=== PATIENT | female | born 1980 | race Caucasian/White ===

== ENCOUNTER → 2018-01-18 | Outpatient (CLI) | payer BC ==
--- NOTE | 2018-01-18 12:22 | PCVCIMAG ---
EXAM: VENOUS DUPLEX LEFT LOWER EXTREMITY INDICATION: Leg pain and swelling. FINDINGS: Left leg: Since December 07, 2017 study occlusive thrombus in the common femoral vein has resolved. Today there is moderate nonocclusive thrombus in the upper main femoral vein which is decreased in amount since prior study. There is unchanged occlusive thrombus in the mid and distal main femoral vein and throughout the popliteal vein and extending into the posterior tibial veins. IMPRESSION: Since prior study left common femoral vein thrombosis has resolved. There is unchanged occlusive deep venous thrombosis in the mid and lower main femoral and throughout the left popliteal vein. LOC:[id number]
--- NOTE | 2018-01-18 14:51 | PCVCIMAG ---
APPROVED REPORT Study performed: 01/18/2018 08:32:18 EXAM: Comprehensive 2D, Doppler, and color-flow Echocardiogram Patient Location: Echo lab Status: routine BSA: 2.34 HR: 68 bpmBP: 130/84 mmHg Rhythm: NSR Other Information Study Quality: Adequate Risk Factors: Cardiac Risk Factors: HTN Indications Chest Pain s/p pulmonary embolism, assess right sided volume and PAP 2D Dimensions LVEF(%): 56.55 (>50%) IVSd: 8.70 (7-11mm) LVDd: 55.22 mm PWd: 8.79 (7-11mm) LVDs: 38.68 (25-40mm) Left Atrium: 40.14 (27-40mm) Aortic Root: 34.63 mm LV Single Plane 4CH: 57.96 % LV Single Plane 2CH: 55.04 %[place] LVEF: 56.50 % Biplane EF: 57.0 % Tricuspid Valve TR Peak Misael.: 2.49 m/s TR Peak Gr.: 24.86 mmHg Left Ventricle Left ventricle is borderline dilated. There is normal LV segmental wall motion. There is normal left ventricular wall thickness. Left ventricular systolic function is within lower limits of normal. LVEF is 50-55%. This study is not technically sufficient to allow evaluation of the LV diastolic function. Right Ventricle The right ventricle is normal size. The right ventricular systolic function is normal. Atria The left atrium size is normal. The right atrium size is normal. Aortic Valve The aortic valve is normal in structure. No aortic regurgitation is present. There is no aortic valvular stenosis. Mitral Valve The mitral valve is normal in structure. Mild mitral regurgitation. No evidence of mitral valve stenosis. Tricuspid Valve The tricuspid valve is normal in structure. Mild tricuspid regurgitation with PAP of 32 mmHg. Pulmonic Valve The pulmonary valve is normal in structure. There is no pulmonic valvular regurgitation. Great Vessels The aortic root is normal in size. IVC is normal in size and collapses with >50% inspiration Pericardium There is no pericardial effusion. There is no pleural effusion. <Conclusion> Left ventricle is borderline dilated. Left ventricular systolic function is within lower limits of normal. LVEF is 50-55%. This study is not technically sufficient to allow evaluation of the LV diastolic function. The right ventricle is normal size. The left atrium size is normal. The aortic valve is normal in structure. Mild mitral regurgitation. Mild tricuspid regurgitation with PAP of 32 mmHg. The aortic root is normal in size. There is no pericardial effusion.
== END | disposition home or self-care (01) ==
LOC: PCVCIMAG 12:00
PROVIDERS: ATTEND Internal Medicine Cardiovascular Disease
DX: I82.402 Acute embolism and thrombosis of unspecified deep veins of left lower extremity (principal); M79.89 Other specified soft tissue disorders
CPT/HCPCS: 93308; 93971

== ENCOUNTER → 2018-01-28 | Outpatient (CLI) | payer BC ==
[~2018-01-28] MED LIST: DIAZEPAM 10 MG TABLET. ONE; HEPARIN 1,000 UNIT/ML VIAL for PCVC ONE; IOHEXOL 300 MG/ML 100ML VIAL. ONE; IV NORMAL SALINE 500ML BAG 1,000 ML ONE; IV NORMAL SALINE 500ML BAG 500 ML ONE; LIDOCAINE 1% Multi-Dose 50 ML VIAL. ONE; MIDAZOLAM HCL/PF 2 MG/2 ML VIAL. ONE; fentaNYL PF VIAL 100 MCG/2 ML VIAL ONE
--- NOTE | 2018-01-28 17:47 | PCVCINTER ---
EXAM: 1. INTRAVASCULAR ULTRASOUND OF THE INFERIOR VENA CAVA 2. INTRAVASCULAR ULTRASOUND OF THE RIGHT COMMON AND EXTERNAL ILIAC AND COMMON FEMORAL VEINS 3. INTRAVASCULAR ULTRASOUND OF THE LEFT COMMON AND EXTERNAL ILIAC AND COMMON FEMORAL VEINS 4. 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 Leg pain and swelling. Failed conservative therapy including medical grade compression stockings for at least 3 months. Venous hypertension chronic. PROCEDURE: Procedure and risks of IVC and ileofemoral venography and intravascular ultrasound, and venous stent placement as appropriate including bleeding, infection, venous thrombosis, stent migration/thrombosis, contrast-induced nephropathy requiring dialysis, stroke, and were discussed with the patient and consent obtained. Patient was given IV antibiotics. The patient's right neck and chest was prepped and draped in the normal sterile fashion. IV conscious sedation was used throughout the procedure with appropriate monitoring. Ultrasound was used to interrogate the neck and showed the internal jugular vein to be patent. A spot ultrasound image of the internal jugular vein was saved. Under ultrasound guidance access into the right internal jugular vein was obtained and an 8F sheath was placed to the level of the lower IVC. Catheter was placed into the lower IVC and IVC cavogram performed. Catheter was placed to the level of the right common femoral vein and right iliofemoral venogram obtained. Catheter was placed to the level of the left common femoral vein and left iliofemoral venogram was obtained. The 8 [place] intravascular ultrasound catheter was then placed to the level of the right common femoral vein and intravascular ultrasound evaluation of the right common femoral, right external iliac, and right common iliac veins was accomplished in a pull-back fashion. The 8 [place] intravascular ultrasound catheter was then placed to the level of the left common femoral vein and intravascular ultrasound evaluation of the left common femoral, left external iliac, and left common iliac veins was accomplished in a pull-back fashion. Intravascular ultrasound evaluation of the inferior vena cava was then accomplished in a pullback fashion. Sheath was removed and hemostasis obtained using manual pressure. FINDINGS: IVC INTRAVASCULAR ULTRASOUND: Normal vessel: 10.5 x 26.9 mm. Area = 214.3 sq. mm. RIGHT COMMON ILIAC VEIN INTRAVASCULAR ULTRASOUND: Normal vessel: 9.6 x 17.2 mm. Area = 132.5 sq. mm. RIGHT EXTERNAL ILIAC VEIN INTRAVASCULAR ULTRASOUND: Normal vessel: 11.9 x 15.1 mm. Area = 144.2 sq. mm. RIGHT COMMON FEMORAL VEIN INTRAVASCULAR ULTRASOUND: Normal vessel: 10.1 x 15.7 mm. Area = 128.5 sq. mm. LEFT COMMON ILIAC VEIN INTRAVASCULAR ULTRASOUND: Normal vessel: 12.9 x 26.6 mm. Area = 282.3 sq. mm. Minimum vessel diameter: 5.3 x 26.6 mm. Area = 129.1 sq. mm. LEFT EXTERNAL ILIAC VEIN INTRAVASCULAR ULTRASOUND: Normal vessel: 11.3 x 16.0 mm. Area = 146.6 sq. mm. LEFT COMMON FEMORAL VEIN INTRAVASCULAR ULTRASOUND: Normal vessel: 10.6 x 13.8 mm. Area = 120.5 sq. mm. VENOGRAPHY: INFERIOR VENA CAVA: Vessel is patent without significant stenosis, scarring, or extrinsic compression. RIGHT COMMON ILIAC VEIN: Vessel is patent without significant stenosis, scarring, or extrinsic compression. RIGHT EXTERNAL ILIAC VEIN: Vessel is patent without significant stenosis, scarring, or extrinsic compression. RIGHT COMMON FEMORAL VEIN: Vessel is patent without significant stenosis, scarring, or extrinsic compression. LEFT COMMON ILIAC VEIN: Mild extrinsic compression mid/upper vessel does not result in flow-limiting stenosis. LEFT EXTERNAL ILIAC VEIN: Vessel is patent without significant stenosis, scarring, or extrinsic compression. LEFT COMMON FEMORAL VEIN: Vessel is patent without significant stenosis, scarring, or extrinsic compression. IMPRESSION: Mild extrinsic compression mid/upper left common iliac vein is not flow-limiting. Otherwise intravascular ultrasound and venographic evaluation of the inferior vena cava and the common and external iliac and common femoral veins bilaterally is within normal limits. LOC:[id number]
== END | disposition home or self-care (01) ==
LOC: PCVCINTER 14:08
PROVIDERS: ATTEND Nuclear Medicine Nuclear Cardiology
DX: I87.2 Venous insufficiency (chronic) (peripheral) (principal); I87.003 Postthrombotic syndrome without complications of bilateral lower extremity; F41.9 Anxiety disorder, unspecified; I10 Essential (primary) hypertension; E03.9 Hypothyroidism, unspecified; Z86.718 Personal history of other venous thrombosis and embolism; Z86.711 Personal history of pulmonary embolism; Z87.442 Personal history of urinary calculi; Z79.01 Long term (current) use of anticoagulants; Z98.890 Other specified postprocedural states; Z82.49 Family history of ischemic heart disease and other diseases of the circulatory system; Z81.8 Family history of other mental and behavioral disorders; Z83.49 Family history of other endocrine, nutritional and metabolic diseases; Z72.89 Other problems related to lifestyle; Z88.8 Allergy status to other drugs, medicaments and biological substances; F32.9 Major depressive disorder, single episode, unspecified; E66.01 Morbid (severe) obesity due to excess calories; Z79.899 Other long term (current) drug therapy
CPT/HCPCS: 36012; 37252; 37253; 75822; 75825; 76937; 99152; 99153; C1751; C1753; C1769; C1894; J1644; J2250; J3010; J7040; Q9967

== ENCOUNTER → 2018-05-05 | Outpatient (CLI) | payer BC ==
--- NOTE | 2018-05-05 11:24 | PCVCIMAG ---
APPROVED REPORT Study performed: 05/05/2018 09:34:08 Exam: Stress Echocardiogram Indication: chest pain, syncope, hx DVT, hx pulmonary embolism Patient Location: Echo lab Stress Nurse: Aleah Valdes RN Status: routine Ht: 5 ft 8 in HR: 85 bpm BP: 120/86 mmHg Rhythm: NSR Procedure The patient underwent an Exercise Stress Test using the [employer] Protocol. Blood pressure, heart rate, and EKG were monitored. An Echocardiogram was performed by voip technician in four stages in quad fashion. At peak stress, four selected images were obtained and placed side by side with resting images for comparison. Stress Test Details Stress Test: Exercise stress testing was performed using a Lexx protocol. HR Resting HR: 85 bpmMax Heart Rate (APMHR): 183 bpm Max HR Achieved: 176 bpmTarget HR (85% APMHR): 155 bpm % of APMHR: 96 Recovery HR: 98 bpm HR response to stress: Normal HR response to stress BP Resting BP: 120/86 mmHg Max BP: 176/86 mmHg Recovery BP: 140/80 mmHg BP response to stress: Normal blood pressure response to stress. ECG Resting ECG: Sinus Rhythm Stress ECG: Sinus Rhythm ST Change: Normal Arrhythmia: rare isolated PVC Recovery ECG: Sinus Rhythm Recovery ST Change: Normal Recovery Arrhythmia: None Clinical Reason for Termination: Maximal effort, Dyspnea Stress Symptoms: Dyspnea, leg fatigue Exercise duration: 6 min 33 sec Highest Stage Achieved: Stage 3: 3.4 mph at 14% grade. Exercise capacity: 8.5 METs Overall Exercise Capacity for Age: Normal Scale: Sedentary Angina Score: None Pre-Stress Echo The resting Echocardiogram showed normal left ventricular contractility with an estimated Ejection Fraction of about >55%. Normal wall motion in all segments on baseline images. Post-Stress Echo The stress Echocardiogram showed normal left ventricular contractility with an estimated Ejection Fraction of about 65%. Normal augmentation of wall motion in all segments on post stress images. Clinical No clinical or ECG evidence for ischemia. Conclusion Clinical Response: Non-ischemic Exercise Capacity: Average Stress ECG Response: Non-ischemic Stress Echo Images: Non-ischemic The left ventricle is normal in size and wall thickness in both the rest and stress images. Mild tricuspid regurgitation with PAP of 36 mmHg. Other Information Study Quality: Adequate <Conclusion> The left ventricle is normal in size and wall thickness in both the rest and stress images. Mild tricuspid regurgitation with PAP of 36 mmHg.
== END | disposition home or self-care (01) ==
LOC: PCVCIMAG 09:54
PROVIDERS: ATTEND Internal Medicine Cardiovascular Disease
DX: I07.1 Rheumatic tricuspid insufficiency (principal); R55 Syncope and collapse; I26.99 Other pulmonary embolism without acute cor pulmonale; I82.409 Acute embolism and thrombosis of unspecified deep veins of unspecified lower extremity
CPT/HCPCS: 93325; 93351

== ENCOUNTER → 2018-07-16 | Outpatient (CLI) | payer BC ==
--- NOTE | 2018-07-16 20:52 | PCVCIMAG ---
EXAM: VENOUS DUPLEX LEFT LEG INDICATION: Leg pain and swelling. FINDINGS: Left leg: No thrombus in the common femoral or upper main femoral veins. Mild nonocclusive thrombus mid/lower main femoral vein and throughout the popliteal vein has shown improvement since December 2017. IMPRESSION: Mild nonocclusive thrombus mid/lower main femoral vein and throughout the popliteal vein has shown improvement since December 2017. LOC:OFFICE
== END | disposition home or self-care (01) ==
LOC: PCVCIMAG 11:13
PROVIDERS: ATTEND Internal Medicine Cardiovascular Disease
DX: M79.605 Pain in left leg (principal)
CPT/HCPCS: 93971

== ENCOUNTER → 2019-04-29 | Outpatient (CLI) | payer BC ==
--- NOTE | 2019-04-29 12:06 | PCVCIMAG ---
EXAM: VENOUS DUPLEX LEFT LOWER EXTREMITY INDICATION: Leg pain and swelling. FINDINGS: Left leg: No thrombus in the common femoral vein and upper main femoral vein. Mild nonocclusive thrombus mid/lower main femoral vein and throughout the popliteal vein similar to June 2018 study. Calf veins are patent where visualized. IMPRESSION: Mild nonocclusive thrombus mid/lower main femoral vein and throughout the left popliteal vein is unchanged since June 2018 study. Incidental note is made of moderate venous insufficiency/reflux throughout the left popliteal vein with reflux duration as much as 3.1 seconds. LOC:[id number]
== END | disposition home or self-care (01) ==
LOC: PCVCIMAG 08:04
PROVIDERS: ATTEND Internal Medicine Cardiovascular Disease
DX: I82.412 Acute embolism and thrombosis of left femoral vein (principal); E78.5 Hyperlipidemia, unspecified; I26.02 Saddle embolus of pulmonary artery with acute cor pulmonale; E03.9 Hypothyroidism, unspecified; Z79.01 Long term (current) use of anticoagulants; Z82.49 Family history of ischemic heart disease and other diseases of the circulatory system; Z84.89 Family history of other specified conditions; Z88.5 Allergy status to narcotic agent; Z88.1 Allergy status to other antibiotic agents; Z88.8 Allergy status to other drugs, medicaments and biological substances; Z79.82 Long term (current) use of aspirin; Z79.899 Other long term (current) drug therapy
CPT/HCPCS: 93971